=== PATIENT | male | born 1945 | race Caucasian/White ===

== ENCOUNTER 2016-08-16 13:52 | Outpatient (CLI) | payer MEDICARE ==
--- NOTE | 2016-08-16 15:43 | XRAY Report ---
THREE-VIEW LUMBAR SPINE: 08/16/2016 CLINICAL INDICATION: Pain. FINDINGS: AP, lateral, coned-down views of the lumbar spine demonstrate mild anterior wedge compress ion deformity of L2, chronicity uncertain. Degenerative changes are present, with disk space narrowi ng worst at L5-S1. Vascular calcifications are present. The bowel gas pattern is unremarkable. IMPRESSION: MILD ANTERIOR WEDGE COMPRESSION DEFORMITY OF L2, CHRONICITY UNCERTAIN. JOB #: [id number] EXT JOB #:[id number]
== END 2016-08-16 13:53 | disposition home or self-care (01) ==
LOC: DI 13:52
PROVIDERS: ATTEND Nurse Practitioner Family
DX: M43.8X6 Other specified deforming dorsopathies, lumbar region (principal); M47.896 Other spondylosis, lumbar region
CPT/HCPCS: 72100

== ENCOUNTER 2016-08-30 08:41 | Outpatient (CLI) | payer MEDICARE ==
--- NOTE | 2016-08-31 09:45 | DEXA Report ---
DEXA SCAN: 08/30/2016 CLINICAL HISTORY: A 70-year-old male who has a lumbar compression deformity. TECHNIQUE: Dual energy x-ray absorptiometry (DXA) was performed on a Doximity system. Regions measured are the AP spine, femoral neck, and, if needed, forearm. COMPARISON: None. In accordance with the International Society for Clinical Densitometry (ISCD) guidelines, data from previous exams may be reanalyzed using current recommendations and techniques. This is done to allow a more accurate basis for comparison with the current study. FINDINGS: There are no World Health Organization guidelines for males. Interpretation of this DEXA scan will be done using World Health Organization guidelines for females. L1 through L4 T-score is -0.7. This is within the normal limits according to World Health Organization guidelines for females. Femoral neck bone mineral density is -0.2. This is within normal limits according to World Health Organization guidelines for females. Total hip T-score is -0.1. This is within normal limits according to World Health Organization guidelines for females. The data for the lumbar spine is as follows: REGION BMD (g/cm/cm) T-SCORE Z-SCORE L1 0.806 -3.0 -2.8 L2 1.230 -0.1 0.0 L3 1.206 -0.3 -0.2 L4 1.242 0.0 0.1 TOTAL 1.130 -0.7 -0.6 NOTE: All evaluable vertebrae are used for classification. The data for the hip is as follows: REGION BMD (g/cm/cm) T-SCORE Z-SCORE Neck 1.049 -0.2 0.8 TOTAL 1.090 -0.1 0.4 NOTE: The femoral neck or total proximal femur, whichever is lowest, is used for classification. IMPRESSION: IT MUST BE NOTED THAT THERE ARE NO WORLD HEALTH ORGANIZATION GUIDELINES FOR MALES. PATIENT'S BONE MINERAL DENSITY IS WITHIN NORMAL LIMITS FOR FEMALES NOTED ABOVE. RECOMMENDATION: Patients with diagnosis of osteoporosis or osteopenia should have regular bone mineral density assessment. For those eligible for Medicare, routine testing is allowed once every 2 years. Testing frequency can be increased for patients who have rapidly progressing disease or for those who are receiving medical therapy to restore bone mass. COMMENT: World Health Organization (WHO) definitions for osteoporosis and osteopenia: NORMAL BMD: T-score at -1.0 or higher, fracture risk is low. OSTEOPENIA BMD: T-score between -1.0 and -2.5, fracture risk is increased. OSTEOPOROSIS BMD: T-score at -2.5 or lower, fracture risk high. National Osteoporosis Foundation recommends: 1. Obtain adequate dietary calcium (at least 1200 mg per day) and vitamin D (400 -800 international units per day). 2. Participate, as appropriate, in regular weightbearing and muscle- strengthening exercise. 3. Avoid tobacco use and reduce alcohol and caffeine intake. 4. For more detailed information see the website at www.NOF.org. MTDD
== END 2016-08-30 08:42 | disposition home or self-care (01) ==
LOC: DI 08:41
PROVIDERS: ATTEND Nurse Practitioner Family
DX: M43.9 Deforming dorsopathy, unspecified (principal)
CPT/HCPCS: 77080

== ENCOUNTER 2016-11-30 07:18 | Outpatient (CLI) | payer MEDICARE ==
--- NOTE | 2016-11-30 12:16 | Ultrasound Report ---
CAROTID DOPPLER: 11/30/2016 HISTORY: Vertigo, falling. TECHNIQUE: Real-time sonographic vascular imaging was performed by the scraper operator through the carotid arteries utilizing both color-flow and Doppler spectral analysis. Multiple outbound telemarketing representative static images were saved for review. Vessel PSV cm/sec 2D Plaque Estimate % EDV cm/sec ICA/CCA PSV % Stenosis RCCA Prox 131 -- RCCA Dist 128 25 -- RECA 88 -- RT BULB 70 -- 13 0.54 CA Prox 64 -- 11 0.5 CA Mid 56 -- 15 0.43 CA Dist 81 -- 25 0.63 RVA 55 RVA flow direction: Antegrade. Vessel PSV cm/sec 2D Plaque Estimate % EDV cm/sec ICA/CCA PSV % Stenosis LCCA Prox 156 -- LCCA Dist 120 23 -- LECA 68 -- LFT BULB 76 -- 19 0.63 LICA Prox 48 -- 28 0.40 LICA Mid 67 -- 19 0.55 LICA Dist 67 -- 17 0.55 LVA 66 LVA flow direction: Antegrade. Velocity criteria are extrapolated from diameter data as defined by the Society of Radiologists in Ultrasound Consensus Conference Radiology 2003; 229; 340-346. Degree of Stenosis % ICA PSV cm/sec Plaque Estimate % ICA/CCA RSV Ratio ICA EDV cm/sec Normal < 125 None < 2.0 < 40 <50 < 125 < 50 < 2.0 < 40 50-69 125 - 130 >/= 50 2.0 - 4.0 40 - 100 >/= 70 but less than near occlusion > 230 >/= 50 > 4.0 > 100 Near occlusion High, low, or undetectable Visible lumen Variable Variable Total occlusion Undetectable No detectable lumen Not applicable Not applicable FINDINGS RIGHT: There is mild plaquing in the right carotid bifurcation, without evidence of a focal hemodynamically significant carotid stenosis. LEFT: There is mild plaquing in the left carotid bifurcation, without evidence of a focal hemodynamically significant carotid stenosis. The vertebral arteries demonstrate antegrade flow bilaterally. IMPRESSION: NO FLOW-LIMITING STENOSIS IN EITHER CAROTID SYSTEM. BILATERAL VERTEBRAL ARTERY ANTEGRADE BLOOD FLOW. MTDD
== END 2016-11-30 07:19 | disposition home or self-care (01) ==
LOC: DI 07:18
PROVIDERS: ATTEND Nurse Practitioner Family
DX: R42 Dizziness and giddiness (principal)
CPT/HCPCS: 93880

== ENCOUNTER 2016-11-30 07:19 | Outpatient (CLI) | payer MEDICARE ==
--- NOTE | 2016-11-30 09:52 | CT Report ---
NONCONTRAST HEAD CT: 11/30/2016 HISTORY: Frequent falls and dizziness. TECHNIQUE: Axial noncontrast images of the brain without comparisons. In accordance with CT protocol optimization, one or more of the following dose reduction techniques w ere utilized for this exam: automated exposure control, adjustment of mA and/or KV based on patient size, or use of iterative reconstructive technique. FINDINGS: The ventricles and cortical sulci are enlarged consistent with age-related tissue loss. T he ventricles are not displaced. No hemorrhage, mass, significant extraaxial collection, major vascu lar territory infarction, or calvarial defect is seen. Minor early microangiopathic vascular change noted. There is membrane thickening right sphenoid and left ethmoid sinuses. IMPRESSION: AGE-RELATED CHANGES IN THE BRAIN WITHOUT SUPERIMPOSED ACUTE FINDINGS. JOB #: [id number] EXT JOB #:[id number]
== END 2016-11-30 07:20 | disposition home or self-care (01) ==
LOC: DI 07:19
PROVIDERS: ATTEND Nurse Practitioner Family
DX: R29.6 Repeated falls (principal); R42 Dizziness and giddiness
CPT/HCPCS: 70450; 93880

== ENCOUNTER 2017-01-23 02:07 | Outpatient (CLI) | payer MEDICARE | END 2017-01-23 02:08 | disposition critical access hospital (66) | LOC: EMS 02:07 | PROVIDERS: ATTEND Surgery | DX: R41.82 Altered mental status, unspecified (principal); W19.XXXA Unspecified fall, initial encounter; Y92.002 Bathroom of unspecified non-institutional (private) residence as the place of occurrence of the external cause | CPT/HCPCS: A0425; A0429 ==

== ENCOUNTER 2017-01-23 02:27 | Emergency (ER) | payer MEDICARE ==
[2017-01-23 02:41] VITALS: BP 149/89
--- NOTE | 2017-01-23 03:50 | CT Preliminary Report ---
Exam: CT HEAD W/O IMPRESSION: Generalized age-related cortical atrophic changes without evidence of acute intracranial abnormality. [facility] SITE ID: [id number]
--- NOTE | 2017-01-23 03:56 | CT Report ---
EXAM: CT HEAD EXAM DATE: 01/23/2017 03:40 AM. CLINICAL HISTORY: Confusion, fall. COMPARISON: Brain CT from 11/30/2016. TECHNIQUE: Multiaxial CT images were obtained from the foramen magnum to the vertex. IV contrast: Non e. Reformats: Coronal. In accordance with CT protocol optimization, one or more of the following dose reduction techniques w ere utilized for this exam: automated exposure control, adjustment of mA and/or KV based on patient s ize, or use of iterative reconstructive technique. FINDINGS: Parenchyma: No intraparenchymal hemorrhage. No evidence of mass, midline shift, or CT findings of acu te infarction. Ayoub-white differentiation is distinct. Diffuse chronic microangiopathic white matter changes are evident. Extraaxial Spaces: Normal for age. No subdural or epidural collections identified. Ventricles: The ventricles and cortical sulci are moderately enlarged, consistent with age-related ti ssue loss. Sinuses and orbits: Moderate mucosal thickening is again noted in the right sphenoid sinus. Mild rn perinatal hillary fluid in the right mastoid sinus is stable. The orbits are unremarkable. Bones: No evidence of fracture or calvarial defect. IMPRESSION: Generalized age-related cortical atrophic changes without evidence of acute intracranial abnormality. [facility] Referring Provider Line: [phone] SITE ID: [id number]
--- NOTE | 2017-01-23 03:57 | CT Preliminary Report ---
Exam: CT CERVICAL SPINE W/O IMPRESSION: 1. No acute cervical spine fracture or malalignment. 2. Mild multilevel degenerative changes without high-grade spinal canal stenosis. [facility] SITE ID: [id number]
--- NOTE | 2017-01-23 04:08 | CT Report ---
EXAM: CT CERVICAL SPINE WITHOUT CONTRAST DATE: 01/23/2017 03:40 AM. HISTORY: Confusion, fall. COMPARISONS: None. TECHNIQUE: Thin-section axial images were acquired of the cervical spine without contrast. Post-proce ssing: Coronal and sagittal reformats. Other: None. In accordance with CT protocol optimization, one or more of the following dose reduction techniques w ere utilized for this exam: automated exposure control, adjustment of mA and/or KV based on patient s ize, or use of iterative reconstructive technique. FINDINGS: Alignment: Normal. No scoliosis or spondylolisthesis. Bones: No acute cervical spine fracture is identified. Interspace Levels/Facets: C1-C2: Mild degenerative changes are present anteriorly without craniocervical stenosis. C2-C3: Left facet arthropathy is noted without spinal canal or foraminal stenosis. C3-C4: There is mild left foraminal narrowing due to uncovertebral hypertrophy. The spinal canal and right foramen are patent. C4-C5: Left facet arthropathy and uncovertebral hypertrophy result in mild left foraminal narrowing. The spinal canal and right foramen are patent. C5-C6: A disk bulge results in mild spinal canal stenosis. There is mild bilateral foraminal narrowin g due to uncovertebral hypertrophy. C6-C7: A posterior disk osteophyte complex results in mild spinal canal stenosis. There is mild bilat eral foraminal narrowing due to uncovertebral hypertrophy. C7-T1: Unremarkable. Musculature: There is moderate diffuse fatty atrophy of the posterior paraspinal muscles. Other: No acute abnormality is seen in the remaining soft tissues of the neck. Mild bilateral apical scarring is noted. IMPRESSION: 1. No acute cervical spine fracture or malalignment. 2. Mild multilevel degenerative changes without high-grade spinal canal stenosis. [facility] Referring Provider Line: [phone] SITE ID: [id number]
--- NOTE | 2017-01-23 04:09 | ED Physician Documentation ---
PD HPI Fall - Stated complaint Stated Complaint: FALL//ALOC - Chief complaint Chief Complaint: General - History obtained from History obtained from: Patient, Family, EMS - History of Present Illness Mechanism of injury: Slipped Fall distance: Standing position Where injury occurred: Home Timing - onset: Today Injury(ies) location: Left Uppper Extremity Associated symptoms: AMS, Amnesia Contributing factors: Intoxicated Similar symptoms before: Work up / diagnostics, Treatment Recently seen: Not recently seen - Additional information Additional information: Patient is a 71 year old male with chronic alcohol abuse who was brought to the emergency department after falling in the bathroom tonight. According to patient, family and ems patient had drank more than usual tonight. Patient's stated that she heard a crash and when she went to check on the patient he was on the bathroom floor. Family states that he has dementia but he seemed more confused than usual and had some amnesia. Patient denied any pain upon initial presentation in the emergency department. Review of Systems Unable to obtain: Confused, Dementia PD PAST MEDICAL HISTORY - Past Medical History Past Medical History: Yes Cardiovascular: High cholesterol - Past Surgical History Past Surgical History: Yes - Present Medications Home Medications: Ambulatory Orders Medication Instructions Recorded Confirmed Atorvastatin [Lipitor] 10 mg PO DAILY 01/23/17 01/23/17 - Allergies Allergies/Adverse Reactions: Allergies Allergy/AdvReac Type Severity Reaction Status Date / Time No Known Drug Allergies Allergy Verified 01/23/17 02:46 - Social History Does the pt smoke?: No Smoking Status: Never smoker ETOH Use: Wine, Beer, Liquor Does the pt have substance abuse?: No - Immunizations Immunizations: TDAP current <10years PD ED PE NORMAL - Vitals Vital signs reviewed: Yes - General General: No acute distress, Well developed/nourished - HEENT HEENT: Atraumatic, PERRL, Moist mucous membranes, Dentition benign - Neck Neck: Supple, no meningeal sign, No bony TTP - Cardiac Cardiac: RRR, No murmur - Respiratory Respiratory: No respiratory distress - Abdomen Abdomen: Soft, Non tender, Non distended - Neuro Neuro: No motor deficit, No sensory deficit, Normal speech Eye Opening: Spontaneous Motor: Obeys Commands Verbal: Confused GCS Score: 14 - Psych Psych: Normal mood PD ED PE EXPANDED - Derm Derm: Other (skin tears) - Extremities Extremities: Left arm, Left elbow (skin tear on left elbow and left wrist. No suturable laceration) Results - Vitals Vitals: Vital Signs - 24 hr 01/23/17 02:37 Temperature 36.8 C Heart Rate 80 Respiratory 16 Rate Blood Pressure 149/89 H O2 Saturation 98 Oxygen O2 Source Room air - Rads (name of study) ct head Radiology: Final report received (no acute pathology) ct cervical spine Radiology: Final report received (no acute fracture or dislocation) PD MEDICAL DECISION MAKING - ED course Complexity details: reviewed old records, reviewed results, re-evaluated patient , considered differential, d/w patient, d/w family ED course: Patient was seen and examined at bedside. Imaging was ordered. When patient returned the wounds were cleaned and dressed but there was nothing to repair. Patient's imaging was within normal limits. Patient required no further work up and was stable for discharge and outpatient follow up. Departure - Departure Disposition: 01 Home, Self Care Clinical Impression: Fall Condition: Good Instructions: Falls Risks Prevent Follow-Up: Carlin Fox MD [Primary Care Provider] - Within 3 Days Comments: Your diagnostics today were within normal limits. your fall was likely secondary to your alcohol consumption. It is important that you refrain from drinking so heavily. You will likely be more sore over the next few days. You can take tylenol as needed for pain. You should keep your wounds clean and dry and you can apply topical antibiotics as needed. You may return to the emergency department at any time for new, worsening or uncontrollable symptoms.
== END 2017-01-23 04:38 | disposition home or self-care (01) ==
LOC: EDUNIT# → ED 02:27 → SUPCPDRO 02:27 → ED 04:38
DX: S51.012A Laceration without foreign body of left elbow, initial encounter (principal); S61.512A Laceration without foreign body of left wrist, initial encounter; F10.129 Alcohol abuse with intoxication, unspecified; W19.XXXA Unspecified fall, initial encounter; Y92.002 Bathroom of unspecified non-institutional (private) residence as the place of occurrence of the external cause; F03.90 Unspecified dementia, unspecified severity, without behavioral disturbance, psychotic disturbance, mood disturbance, and anxiety
CPT/HCPCS: 70450; 72125; 99283; 99284

== ENCOUNTER 2017-03-19 12:58 | Outpatient (CLI) | payer MEDICARE ==
--- NOTE | 2017-03-20 10:09 | XRAY Report ---
DATE OF SERVICE: 03/19/2017 TWO VIEW THORACIC SPINE: 03/19/2017 CLINICAL INDICATION: Pain. COMPARISON: Two view chest of 10/25/2015. FINDINGS: Frontal and lateral views of the thoracic spine demonstrate an anterior wedge compression deformity of T7, with approximately 60% anterior height loss. No other compression fracture is seen. Mild degenerative disk disease is present. IMPRESSION: T7 COMPRESSION FRACTURE, NEW FROM 10/25/2015, WITH APPROXIMATELY 60% ANTERIOR HEIGHT LOSS. TD: 03/20/2017 11:08
== END 2017-03-19 12:59 | disposition home or self-care (01) ==
LOC: DI 12:58
PROVIDERS: ATTEND Nurse Practitioner Family
DX: M48.54XA Collapsed vertebra, not elsewhere classified, thoracic region, initial encounter for fracture (principal); M51.34 Other intervertebral disc degeneration, thoracic region
CPT/HCPCS: 72070

== ENCOUNTER 2018-11-21 07:37 | Outpatient (CLI) | payer MEDICARE ==
--- NOTE | 2018-11-24 09:58 | Ultrasound Report ---
Reason: ABN LIVER FUNCTION TEST Procedure Date: 11/21/2018 Accession Number: [id number] / [id number] Procedure: US - Abdomen Complete CPT Code: FULL RESULT: EXAM: ABDOMEN ULTRASOUND EXAM DATE: 11/21/2018 09:49 AM. CLINICAL HISTORY: ABN LIVER FUNCTION TEST. Rubbery mass noted just below the xiphoid. COMPARISON: AORTA SCREENING 11/23/2015 11:57 AM. TECHNIQUE: Real-time scanning was performed with static images obtained. FINDINGS: Liver: Normal in size and increased in echotexture. 15.9 cm. Main portal vein flow: Hepatopetal. Gallbladder: Normal. No stones, wall thickening, or sonographic Toth's sign. Biliary System: Common bile duct measures 5 mm. No intrahepatic or extrahepatic ductal dilatation. Pancreas: Imaged portion is unremarkable. Kidneys: Right: 10.1 cm longitudinally. Normal. No contour-deforming mass, stones, or hydronephrosis. Left: 11 cm longitudinally. Normal. No contour-deforming mass, stones, or hydronephrosis. Spleen: 12.5 cm. Normal in size and echotexture. Aorta and Inferior Vena Cava: Unremarkable. Free fluid: None. Other: In the area of clinical interest inferior to the xiphoid no definite abnormality is seen by ultrasound. IMPRESSION: 1. Increased heterogeneous hepatic echogenicity suggests fatty infiltration. No focal hepatic mass is seen. 2. Otherwise negative abdomen ultrasound. [facility]
== END 2018-11-21 07:38 | disposition home or self-care (01) ==
LOC: DI 07:37
PROVIDERS: ATTEND Internal Medicine
DX: R94.5 Abnormal results of liver function studies (principal)
CPT/HCPCS: 76700